=== PATIENT | female | born 1950 | race Caucasian/White ===

== ENCOUNTER 2016-12-02 07:41 | Day surgery (SDC) | payer OTHER ==
[2016-12-02] MEDS: TETRACAINE 0.5% OPHTH 1 DOSE AFFEYE ONE ×4 (07:54→10:57)
[2016-12-02] MEDS: VIGAMOX 0.5% OPHTH 1 DOSE AFFEYE ONE ×5 (07:55→11:11)
[2016-12-02] MEDS: PROLENSA OPHTH 1 DOSE AFFEYE ONE (08:07)
[2016-12-02] MEDS: ALPHAGAN-P OPHTH 1 DOSE AFFEYE ONE (08:08)
[2016-12-02] MEDS: CYCLOGYL 1% OPHTH 1 DOSE OP ONE ×2 (08:10→08:12)
[2016-12-02] MEDS: AK-DILATE 2.5% OPHTH 1 DOSE OP ONE ×2 (08:10→08:12)
[2016-12-02] MEDS: MYDRIACIL OPHTH 1 DOSE AFFEYE ONE ×2 (08:10→08:12)
[2016-12-02] MEDS: NS 500 ML IV 500 ML IV ONE (08:15)
[2016-12-02] MEDS ORDERED: DIPRIVAN VIAL ONE (09:35)
[2016-12-02] MEDS: BETADINE OPHTH SOLN 5% EACHEYE ONE (10:40)
[2016-12-02] MEDS: ADRENALINE CHL INJ IJ ONE ×2 (10:49→10:57)
[2016-12-02] MEDS: XYLOCAINE-MPF 1% IJ ONE ×2 (10:49→10:57)
[2016-12-02] MEDS: BSS OPHTH (PLAIN) 500 ML with VANCOMYCIN HCL 500 MG VIAL 25 MG, ADRENALINE CHL INJ 1 MG IR ONE ×6 (10:50→10:57)
[2016-12-02] MEDS: DUOVISC IO ONE ×2 (10:50→10:57)
[2016-12-02] MEDS: VISCOAT 0.5 ML IO ONE (11:01)
[2016-12-02 11:53] VITALS: BP 120/60
== END 2016-12-02 11:35 | disposition home or self-care (01) ==
LOC: SURG1 07:41
PROVIDERS: ATTEND Ophthalmology
PROC: 08RJ3JZ Replacement of Right Lens with Synthetic Substitute, Percutaneous Approach (ICD-10-PCS; principal; 2016-12-02 11:45)
PROC: 08DJ3ZZ Extraction of Right Lens, Percutaneous Approach (ICD-10-PCS; principal; 2016-12-02 11:45)
DX: H25.11 Age-related nuclear cataract, right eye (principal); H25.011 Cortical age-related cataract, right eye
CPT/HCPCS: A4217; J0170; J3370; J3490

== ENCOUNTER 2016-12-23 10:20 | Day surgery (SDC) | payer OTHER ==
[~2016-12-23 10:20] MED LIST: DIPRIVAN VIAL ONE
[2016-12-23] MEDS ORDERED: NS 500 ML IV 500 ML IV ONE (10:26)
[2016-12-23] MEDS ORDERED: TETRACAINE 0.5% OPHTH 1 DOSE AFFEYE ONE ×4 (11:00→14:18)
[2016-12-23] MEDS ORDERED: VIGAMOX 0.5% OPHTH 1 DOSE AFFEYE ONE ×6 (11:01→14:30)
[2016-12-23] MEDS ORDERED: PROLENSA OPHTH 1 DOSE AFFEYE ONE (11:12)
[2016-12-23] MEDS ORDERED: ALPHAGAN-P OPHTH 1 DOSE AFFEYE ONE (11:13)
[2016-12-23] MEDS ORDERED: CYCLOGYL 1% OPHTH 1 DOSE OP ONE ×3 (11:14→11:16)
[2016-12-23] MEDS ORDERED: MYDRIACIL OPHTH 1 DOSE AFFEYE ONE ×3 (11:14→11:16)
[2016-12-23] MEDS ORDERED: AK-DILATE 2.5% OPHTH 1 DOSE OP ONE ×3 (11:14→11:16)
[2016-12-23] MEDS ORDERED: BETADINE OPHTH SOLN 5% EACHEYE ONE (14:02)
[2016-12-23] MEDS ORDERED: ADRENALINE CHL INJ IJ ONE ×3 (14:11→14:18)
[2016-12-23] MEDS ORDERED: XYLOCAINE-MPF 1% IJ ONE ×3 (14:11→14:18)
[2016-12-23] MEDS ORDERED: DUOVISC IO ONE ×3 (14:12→14:18)
[2016-12-23] MEDS ORDERED: BSS OPHTH (PLAIN) 500 ML with VANCOMYCIN HCL 500 MG VIAL 25 MG, ADRENALINE CHL INJ 1 MG IR ONE ×6 (14:13)
[2016-12-23 14:45] VITALS: BP 121/70
== END 2016-12-23 14:45 | disposition home or self-care (01) ==
LOC: SURG1 10:20
PROVIDERS: ATTEND Ophthalmology
PROC: 08RK3JZ Replacement of Left Lens with Synthetic Substitute, Percutaneous Approach (ICD-10-PCS; principal; 2016-12-23 20:45)
PROC: 08DK3ZZ Extraction of Left Lens, Percutaneous Approach (ICD-10-PCS; principal; 2016-12-23 20:45)
DX: H25.12 Age-related nuclear cataract, left eye (principal); H25.012 Cortical age-related cataract, left eye
CPT/HCPCS: A4217; J0170; J3370; J3490